=== PATIENT | female | born 1970 | race Caucasian/White ===

== ENCOUNTER 2018-08-09 11:07 | Day surgery (SDC) | payer OTHER ==
--- NOTE | 2018-08-07 19:02 | HP ---
PREOPERATIVE HISTORY AND PHYSICAL: DATE OF SURGERY/ADMISSION: 08/09/18 - [facility] The patient will be 48 on day of surgery. DATE OF OFFICE VISIT/ENCOUNTER: 07/21/18 ATTENDING SURGEON: Nany Mesa MD.* (DICTATED BY STEVE TILLMAN) PROCEDURE: Excision cyst, right thumb. CHIEF COMPLAINT: Cyst, right thumb. HISTORY OF PRESENT ILLNESS: This is, at time of dictation, a 47-year-old female who complains of a lump on the dorsal aspect of her right thumb. She thinks it has been present for about 3 months, which showed up after she tripped on something in her garage. It bothers her when she writes or bends her thumb. She does not have any pain otherwise at rest and she denies any numbness or tingling. She is consented to proceed with surgical excision of the mass. PAST MEDICAL HISTORY: 1. History of breast cancer in 2011. 2. Hormone therapy with tamoxifen. 3. Chronic low back pain. PAST SURGICAL HISTORY: 1. x2. 2. Appendectomy. 3. Mastectomy. 4. D and C x4. 5. Right hip surgery. CURRENT MEDICATIONS: Tamoxifen citrate 20 mg daily. ALLERGIES: No known drug allergies. FAMILY MEDICAL HISTORY: Noncontributory. 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 She denies tobacco use and recreational drug use. She drinks alcohol on occasion. REVIEW OF SYSTEMS: Negative for general, cephalic, cardiovascular, respiratory , GI, , other musculoskeletal, integumentary, endocrine, neurologic and hematologic symptoms. Infectious Disease: Negative for MRSA, hepatitis C, HIV. PHYSICAL EXAMINATION GENERAL: Well-developed, well-nourished, 47-year-old female, in no acute distress. VITAL SIGNS: Height 5 feet 2 inches, weight 120 pounds, pulse rate 87, blood pressure 98/60. HEENT: Normocephalic, atraumatic. Pupils are equal, round, and reactive to light and accommodation. Throat is clear. NECK: Supple. No palpable lymph nodes. PULMONARY: Lungs are clear to auscultation bilaterally. No wheezes, rales, or rhonchi. CARDIOVASCULAR: Regular rate and rhythm. S1 and S2. No murmurs, rubs, or gallops. No edema. ABDOMEN: Positive bowel sounds, soft, and nontender. NEUROLOGIC: Alert and oriented x3. Cranial nerves II through XII are intact. Sensation is intact to light touch. MUSCULOSKELETAL: On exam of the right thumb, there is a cystic mass on the dorsal aspect at the IT joint. She has full range of motion of the thumb in flexion, extension, adduction, apposition compared to the left thumb. She can make a full fist. The mass is slightly tender to palpation and the pain increases when she flexes her thumb. She has good strength of the thumb. IMAGING STUDIES: X-rays; AP, lateral, and oblique of the right thumb show minimal degenerative changes. IMPRESSION: Ganglion cyst of right thumb with a small osteophyte. PLAN: The patient is scheduled to undergo an excision cyst right thumb with Dr. Mesa on 08/09/18. She will return to the office 10 days postop for followup and suture removal. A prescription for Ultracet was e-scribed to the patient's pharmacy for postoperative pain management. STEVE TILLMAN [id number]/[facility] #: [id number] [place]
[2018-08-09] MEDS ORDERED: Lidocaine 1% INJ* 10 MG/ML 30 ML SDV ONE ×2 (12:31→12:57)
[2018-08-09 14:19] VITALS: BP 108/51
--- NOTE | 2018-08-09 17:29 | OP ---
CC: Dr. Mesa OPERATIVE NOTE: DATE OF OPERATION: 08/09/18 DATE OF : 72 SURGEON: Dr. Mesa. TRAINING ASSISTANT: STEVE Tomas. ANESTHESIA: Local. PRE-OP DIAGNOSIS: Right thumb mass. POST-OP DIAGNOSIS: Right thumb mass. OPERATIVE PROCEDURE: Remove, right thumb mass. ESTIMATED BLOOD LOSS: Zero. TOURNIQUET TIME: Approximately 15 minutes with a Tourni-Cot. DESCRIPTION OF PROCEDURE: The patient was brought to the operating room and was given a digital bloc k anesthetic with 10 cc of 1% plain lidocaine. The skin of her right upper extremity was prepped and draped in the usual sterile fashion. A Tourni-Cot was placed on the thumb and then a T-shaped incis ion was made over the dorsal aspect of the PIP joint. The skin flaps were carefully elevated and the n a ganglion cyst was removed from the dorsal aspect of the tendon. An incision was made down the la teral aspect of the tendon. The underlying osteophyte was removed with a rongeur. The wound was irr igated and the skin edges reapproximated with 4-0 nylon suture. The wound was dressed with Xeroform, 4x4, Webril, and Coban. The patient tolerated the procedure well, was brought to the recovery room in good condition. [id number]/[facility] #: [id number]
== END 2018-08-09 14:01 | disposition home or self-care (01) ==
LOC: OREAST 11:07
PROVIDERS: ATTEND Orthopaedic Surgery
DX: M71.341 Other bursal cyst, right hand (principal); Z85.3 Personal history of malignant neoplasm of breast
CPT/HCPCS: 88304